=== PATIENT | male | born 1980 | race Caucasian/White ===

== ENCOUNTER 2024-05-13 14:00 | Emergency (ER) | payer MEDICAID ==
[~2024-05-13] VITALS: Ht 175.3 cm; Wt 107.0 kg
[2024-05-13 14:02] VITALS: O2SAT 99
[2024-05-13 14:15] VITALS: BP 146/80; PULSE 115; RESP 16; TEMP 98.3; O2SAT 98
[2024-05-13] MEDS ORDERED: CLIN60GE5 TP (15:10)
[2024-05-13] MEDS ORDERED: DOXY100C74 MT (15:10)
== END 2024-05-13 15:33 | disposition home or self-care (01) ==
LOC: ER 14:05
DX: L73.9 Follicular disorder, unspecified (principal); J45.909 Unspecified asthma, uncomplicated
CPT/HCPCS: 99283